=== PATIENT | male | born 1940 | race Caucasian/White ===

== ENCOUNTER 2020-11-23 14:14 | Emergency (ER) | payer OTHER ==
[~2020-11-23] VITALS: Ht 180.3 cm; Wt 81.2 kg
[~2020-11-23 14:14] MED LIST: ASA81BEC PO; CIPRO500 M1 PO; CRESTOR10 MG; HYTRIN 5 M5 MG/1 CAP PO; KEFLEX500 MG PO; LOPRESSOR 50 MG50 M1; LOPRESSOR50 PO; SYNTHROID75 MC1 PO; TAMSULOSIN HCL0.4 M1; TOPROL XL50 MG PO; VYTORIN 10-101 EACH PO; VYTORIN 10-401 EACH PO
[2020-11-23] MEDS ORDERED: LIPITOR40 MG PO (15:10)
[2020-11-23] MEDS ORDERED: ELIQUIS5 MG PO (15:12)
[2020-11-23] MEDS ORDERED: METOPROLOL PO (15:13)
[2020-11-23] MEDS ORDERED: DONEPEZIL PO (15:14)
[2020-11-23 15:29] LABS: ABSOLUTE NEUTROPHILS 5.4 thou/uL (1.4-8.2); BASOPHILS 0.7 % (0.0-2.0); EOSINOPHILS 0.2 % (0.0-3.0); HEMATOCRIT 41.3 % (42.0-52.0); HEMOGLOBIN 13.7 gm/dL (14.0-18.0); LYMPHOCYTES 11.3 % (24.0-44.0); MCH 30.6 pg (26.0-34.0); MCHC 33.2 g/dL (28.0-37.0); MCV 92.3 fL (80.0-100.0); MONOCYTES 7.8 % (1.0-8.0); PLATELET COUNT 172 thou/uL (150-400); RBC 4.48 mil/uL (4.50-6.00); RDW 13.9 % (10.5-14.5); WBC 6.8 thou/uL (4.0-11.0)
[2020-11-23 15:35] LABS: CALCIUM 9.1 mg/dL (8.5-10.1); CREATININE 1.5 mg/dL (0.7-1.3); POTASSIUM 4.7 mmol/L (3.5-5.1)
[2020-11-23 16:08] LABS: URINE BILIRUBIN NEGATIVE (Negative); URINE BLOOD 1+ (Negative); URINE CLARITY CLEAR; URINE COLOR YELLOW; URINE GLUCOSE-RANDOM* NEGATIVE (Negative); URINE KETONES TRACE (Negative); URINE LEUKOCYTES-REFLEX NEGATIVE (Negative); URINE NITRITE-REFLEX NEGATIVE (Negative); URINE PROTEIN (DIPSTICK) TRACE (Negative); URINE SPECIFIC GRAVITY >= 1.030 (1.005-1.035); URINE UROBILINOGEN 0.2 E.U./dl (0.2-1.0)
[2020-11-23 16:14] LABS: AMP/METHAMP Negative (Negative); BARBITURATES Negative (Negative); BENZODIAZEPINES Negative (Negative); COCAINE Negative (Negative); METHADONE Negative (Negative); OPIATES Negative (Negative); PCP Negative (Negative)
[2020-11-23 16:21] LABS: CASTS None Seen /LPF (None Seen); MUCUS 0-3 Light strn/LPF (None Seen); SQUAMOUS 0-3 Few /LPF (0-3)
[2020-11-23 16:22] LABS: BACTERIA-REFLEX 1-9 Few /HPF (None Seen); CRYSTALS None Seen /LPF (None Seen); URINE RBC 3-10 Few /HPF (NONE SEEN); URINE WBC-REFLEX 0-5 Rare /HPF (0-5)
[2020-11-23 16:31] VITALS: BP 118/70
--- NOTE | 2020-11-26 07:34 | EKG ---
[place] [address] [facility] [place] [address] ELECTROCARDIOGRAM REPORT Name: SASHA BANKS Room #: DEP KODY Josue#: [id number] Admission: 11/23/20 Attend Phys: Discharge: 11/23/20 Date of : 42 Report #: [id number] [facility] ED Test Date: 2020-11-23 Test Time: 14:38:19 Pat Name: SASHA BANKS Department: Room: Gender: M Content Management Consultant: shashi : 1940 Requested By: Len Del Valle Order Number: [id number] MD: Db Pinto Measurements Intervals [place] Rate: 69 P: [place]: QRS: -14 QRSD: 89 T: 58 QT: 385 QTc: 413 Interpretive Statements Atrial fibrillation Low voltage, extremity leads Consider anterior infarct Compared to ECG 09/20/2013 10:54:32 Low QRS voltage now present Myocardial infarct finding now present ST (T wave) deviation no longer present Electronically Signed On 11-26-2020 7:34:27 CDT by Db Pinto [email or web address] <ELECTRONICALLY SIGNED> By: Db Pinto MD, [facility] 11/26/20 0734 1438 1438 Db Pinto MD, FACC /EPI
== END 2020-11-23 16:43 | disposition home or self-care (01) ==
LOC: ER 14:14
PROVIDERS: Nurse Practitioner
DX: E86.0 Dehydration (principal); F03.90 Unspecified dementia, unspecified severity, without behavioral disturbance, psychotic disturbance, mood disturbance, and anxiety; F05 Delirium due to known physiological condition; I10 Essential (primary) hypertension; E03.9 Hypothyroidism, unspecified; E78.00 Pure hypercholesterolemia, unspecified; E78.5 Hyperlipidemia, unspecified; I48.91 Unspecified atrial fibrillation; Z79.899 Other long term (current) drug therapy; Z87.891 Personal history of nicotine dependence